=== PATIENT | female | born 1985 | race Caucasian/White ===

== ENCOUNTER 2017-05-05 13:36 | Emergency (ER) | payer MEDICAID ==
[~2017-05-05] VITALS: Ht 167.6 cm; Wt 46.3 kg
[~2017-05-05 13:36] MED LIST: PREN-39 PO; PREN-46 PO
[2017-05-05 13:41] VITALS: Ht 167.6 cm; Wt 46.3 kg
[2017-05-05] MEDS ORDERED: HYDROCODONE/APAP (5/325) TAB PO ONE (15:00)
[2017-05-05] MEDS ORDERED: NAPR-260 PO (15:41)
[2017-05-05] MEDS ORDERED: CYCL-319 PO (15:41)
[2017-05-05] MEDS ORDERED: METOCLOPRAMIDE 10 MG INJ IV ONE (16:00)
[2017-05-05] MEDS ORDERED: DIPHENHYDRAMINE 50 MG INJ IV ONE (16:00)
--- NOTE | 2017-05-05 16:01 | ERD ---
ER Documentation Chief Complaint Chief Complaint c/o difficulty breathing with bilateral upper back pain x3 days HPI This is a 32-year-old female who presents the emergency department today complaining some some upper back pain for the past 3 days. Patient states that she has pain when she moves. States she has pain when she lays on it. Denies any chest pain, cough, shortness of breath however she states that it is worse when she takes a deep breath in. States that at night she feels like her left arm has some numbness and tingling in it. States she has some pain on the left side of her neck. 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 States she took ibuprofen and it improved some of her symptoms. Denies any recent or prolonged foreign travel, use of oral contraceptive pills, cigarette smoke. ROS All systems reviewed and are negative except as per history of present illness. Medications Home Meds Active Scripts Cyclobenzaprine Hcl* (Cyclobenzaprine Hcl*) 10 Mg Tablet, 10 MG PO QHS, #7 TAB Prov:PORTIA SHAH PA-C 05/05/17 Naproxen* (Naprosyn*) 500 Mg Tablet, 500 MG PO BID Y for PAIN AND/OR INFLAMMATION, #30 TAB Prov:PORTIA SHAH PA-C 05/05/17 Reported Medications Vits W-Ca,Fe,Fa(<1MG) ( Vitamins) 1 Tab Tablet, 1 TAB PO DAILY 06/01/13 Vit #108/Iron/Fa ( ONE TABLET) 1 Each Tablet, 1 EACH PO DAILY 06/01/13 Allergies Allergies: Coded Allergies: No Known Allergy (Unverified , 06/01/13) PMhx/Soc Medical and Surgical Hx: pt denies Medical Hx, pt denies Surgical Hx Hx Alcohol Use: No Hx Tobacco Use: No Smoking Status: Never smoker Physical Exam Vitals Vital Signs Date Time Temp Pulse Resp B/P Pulse Ox O2 Delivery O2 Flow Rate FiO2 05/05/17 13:41 98.8 69 20 106/66 100 Physical Exam Const: NAD, talkative, Head: Atraumatic Eyes: Normal Conjunctiva ENT: Normal External Ears, Nose and Mouth. Neck: Full range of motion..~ No meningismus. No midline tenderness. Left side of neck with paraspinal tenderness and inferior trapezius tenderness to palpation Resp: Clear to auscultation bilaterally no absent breath sounds. No wheezing. Cardio: Regular rate and rhythm, no murmurs Abd: Soft, non tender, non distended. Normal bowel sounds Skin: No petechiae or rashes Back: Thoracic spine no midline tenderness. Full active range of motion. Tenderness palpation bilateral paraspinals. Ext: No cyanosis, or edema with full active range of motion. Pulses 2+. Distal neurovascularly intact. Good cap refill. Neur: Awake and alert Psych: Normal Mood and Affect Results 24 hrs Current Medications Medications (Trade) Dose Ordered Sig/Aster Route PRN Reason Start Time Stop Time Status Last Admin Dose Admin Acetaminophen/ Hydrocodone Bitart ([place] (5/325)) 1 tab ONCE ONCE PO 05/05/17 15:00 05/05/17 15:01 DC 05/05/17 15:09 Metoclopramide HCl (Reglan) 10 mg ONCE ONCE IV 05/05/17 16:00 05/05/17 16:01 Cancel Diphenhydramine HCl (Benadryl) 12.5 mg ONCE ONCE IV 05/05/17 16:00 05/05/17 16:01 Cancel Procedures/MDM This is a 32-year-old female who presents to the emergency department today complaining of back pain that goes from her lower trapezius down into her mid thoracic region bilaterally. Patient indicated that it is worse with movement and worse when she lays on it at night. Patient is afebrile and otherwise well- appearing. She is not tachycardic. Her oxygen saturation is 100%. She has had no recent or prolonged foreign travel. She denies any cough or fevers. She does not use oral contraceptive pills or smokes cigarettes I do not feel that she requires advanced imaging at this time. I have low suspicion for pneumonia, PE, abscess, pleural effusion, pneumothorax. She had no specific trauma and I have low suspicion for acute fracture dislocation. Patient did complain of some left arm pain however she also stated that she feels like it goes to sleep at night and she has had some pain in the left side of her neck and this is likely coming from her neck. I have explained this to her. I have low suspicion for acute coronary syndrome. Do not feel she requires an EKG. Patient did indicate that she had taken ibuprofen to help with pain. Patient was very talkative in the exam room and even got up out of her chair to demonstrate where she was having some pain on her back and demonstrated it on me. Given that her pain is reproducible and has pain in her bilateral paraspinals this is most likely musculoskeletal strain versus muscle spasm. I have given the patient Alessandro here in the emergency department. I will give her a prescription for short course of Naprosyn and Flexeril for home. She is instructed to apply ice and heat intermittently. She was instructed to return for any worsening of symptoms, cough or shortness of breath. At this time the patient is stable for discharge and outpatient management. Patient should follow up with their PCP in the next 1-2 days. They may return to the emergency department sooner for any persistent or worsening of symptoms. Patient understood and agreed with the plan. Departure Diagnosis: Primary Impression: Back pain Back pain location: back pain in unspecified location Chronicity: acute Back pain laterality: bilateral Qualified Code: M54.9 - Acute bilateral back pain, unspecified back location Condition: Fair Patient Instructions: Back Pain (Acute Or Chronic) Referrals: [facility] ted se sosa hecho un examen mdico de control que le indica que no est en adalid condicin que requiera tratamiento urgente en el Departamento de Emergencia. Un estudio ms profundo y el tratamiento de vieira condicin pueden esperar sin ningn riesgo hasta que usted sea atendida/o en el consultorio de vieira mdico o adalid cl tessie. Es responsabilidad suya arreglar adalid aydin para el seguimiento del winsome. MANEJO DE CONDICIONES NO URGENTES EN EL FUTURO 1) Si usted tiene un mdico de atencin primaria: Usted debera llamar a vieira mdico de atencin primaria antes de venir al departamento de emergencia. Despus de las horas de consultorio, vieira doctor o vieira asociado/a est disponible por telfono. El mdico o enfermero de bhargav en el servicio telefnico puede asesorarle por pastora medio para atender el problema, o winsome contrario se puede programar adalid aydin. 2) Si usted no tiene un mdico de atencin primaria: Llame al mdico o clnica de referencia que aparece abajo zaire las horas de consultorio para hacer adalid aydin para que le vean. CLINICAS: [facility] [phone] [facility] [phone] [facility] [phone] [place] [phone] [place] [phone] [facility] [phone] [address] Additional Instructions: Llame al doctor MAANA y tre adalid AYDIN PARA DENTRO DE 1-2 PEREIRA.Dgale a la secretaria que nosotros le instruimos hacer esta aydin.Avise o llame si vieira condicin se empeora antes de la aydni. Regresa aqui si peor o no mejor. take Naprosyn or Tylenol or Motrin for pain. Take Flexeril for muscle spasms. Take only at night and do not drive while taking this medication. Apply ice and heat intermittently for pain PORTIA SHAH PA-C May 05, 2017 16:00
== END 2017-05-05 15:55 | disposition home or self-care (01) ==
LOC: FTE 13:36
DX: M54.6 Pain in thoracic spine (principal)
CPT/HCPCS: Z7502; Z7610; 99283

== ENCOUNTER 2018-07-07 18:28 | Outpatient (CLI) | payer MEDICAID ==
[~2018-07-07] VITALS: Ht 165.1 cm; Wt 58.7 kg
[~2018-07-07 18:28] MED LIST changes: -PREN-46 PO
[2018-07-07 19:24] VITALS: Ht 165.1 cm; Wt 58.7 kg
[2018-07-07 19:25] VITALS: BP 98/61; PULSE 92; RESP 18
--- NOTE | 2018-07-08 07:30 | TRIAGE ---
OB Triage Datetime Report Generated by CPN: 07/08/2018 07:30 Datetime: 07/07/2018 23:43 Stage of : OB Triage Labor Evaluation Frequency: x5 Monitor Mode: External Duration (sec)2399: 80-90 Quality: Mild Pattern: Normal: <= 5 Contractions in 10 Minutes Resting Tone [place]: Relaxed Heart Rate FHR Baseline Rate: 135 Monitor Mode: External US Variability: Moderate 6-25 bpm Accelerations: 15X15 Decelerations: None Category: Category I Datetime: 07/07/2018 23:00 Stage of : OB Triage Labor Evaluation Frequency: Irregular Monitor Mode: External Duration (sec)2399: 60-120 Quality: Mild Pattern: Normal: <= 5 Contractions in 10 Minutes Resting Tone [place]: Relaxed Heart Rate FHR Baseline Rate: 140 Monitor Mode: External US Variability: Moderate 6-25 bpm Accelerations: 15X15 Decelerations: None Category: Category I Datetime: 07/07/2018 22:59 Stage of : OB Triage Datetime: 07/07/2018 22:56 Vaginal Exam Dilatation (cms): 1.5 Effacement (%): 60 Station: -2 Exam By: EVANGELIST Antunez Vaginal Bleeding: None Cervix, Consistency: Moderate Cervix, Position: Posterior Datetime: 07/07/2018 22:30 Stage of : OB Triage Datetime: 07/07/2018 21:23 Stage of : OB Triage Labor Evaluation Frequency: x3 Monitor Mode: External Duration (sec)2399: 40-130 Quality: Mild Pattern: Normal: <= 5 Contractions in 10 Minutes Resting Tone [place]: Relaxed Heart Rate FHR Baseline Rate: 130 Monitor Mode: External US Variability: Moderate 6-25 bpm Accelerations: 15X15 Decelerations: None Category: Category I Datetime: 07/07/2018 21:00 Stage of : OB Triage Labor Evaluation Frequency: Irregular Monitor Mode: External Duration (sec)2399: 40-90 Quality: Mild Pattern: Normal: <= 5 Contractions in 10 Minutes Resting Tone [place]: Relaxed Heart Rate FHR Baseline Rate: 135 Monitor Mode: External US FHR Baseline Changes: No Baseline Change Variability: Moderate 6-25 bpm Accelerations: 15X15 Decelerations: None Datetime: 07/07/2018 20:47 Vaginal Exam Dilatation (cms): 1.5 Effacement (%): 60 Station: -2 Exam By: EVANGELIST Antunez Membrane Status: Intact Vaginal Bleeding: None Cervix, Consistency: Moderate Cervix, Position: Posterior Presentation 'A': Cephalic Datetime: 07/07/2018 20:00 Stage of : OB Triage Labor Evaluation Frequency: Irregular Monitor Mode: External Duration (sec)2399: 40-90 Quality: Mild Pattern: Normal: <= 5 Contractions in 10 Minutes Resting Tone [place]: Relaxed Heart Rate FHR Baseline Rate: 135 Monitor Mode: External US Variability: Moderate 6-25 bpm Accelerations: 15X15 Datetime: 07/07/2018 19:41 Stage of : OB Triage Datetime: 07/07/2018 19:01 Stage of : OB Triage Assessment Type: Triage Maternal Assessment Level of Consciousness: Fully Conscious DTR's/Clonus: DTRs 2+; No Clonus Headache: Denies Blurred Vision: No Respiratory Effort: Unlabored; Regular Rhythm; Equal Expansion Breath Sounds, Left: Clear and Equal Breath Sounds, Right: Clear and Equal Nausea/Vomiting: Denies RUQ Epigastric Pain: Denies Facial Edema: None Temperature Route: Axillary Fall Risk Assessment History of Falling: (0) No Secondary Diagnosis: (0) No Ambulatory Aid: (0) Bedrest/Nurse Assist IV Therapy: (0) No Gait: (0) Normal/Bedrest/Immobile Mental Status: (0) Oriented to Own Ability Fall Score: 0 Fall Risk Score Definition: No Risk: No action required Labor Evaluation Frequency: APPLIED Monitor Mode: External Pattern: Normal: <= 5 Contractions in 10 Minutes Resting Tone [place]: Relaxed Heart Rate FHR Baseline Rate: 145 Monitor Mode: External US Variability: Moderate 6-25 bpm Accelerations: 10X10 Decelerations: None Pain Assessment Pain Scale: 7 Pain Presence: Intermittent Pain Type: Cramping; Contraction Pain Location: Abdomen Pain Goal: 3 Pain Relief Measures: Comfort Measures Datetime: 07/07/2018 19:00 Time of Arrival: 07/07/2018 18:22 EGA: 39.6 Arrived By: Ambulatory Arrived From: Home Chief Complaint: C/O UC'S TODAY, DENIES LEAKING, OR UC'S SEEN IN NST FOR LOW PAPPA Movement: Present Contractions: Irregular Rupture of Membranes: Denies Vaginal Bleeding: None Vaginal Discharge: Denies Recent Sexual Intercouse: Denies Abdominal Trauma: Not Applicable Patient Complaints: Contractions; Cramping Initial Plan: MONITOR, VE Datetime: 06/27/2018 14:43 Fall Score: 0 Fall Risk Score Definition: No Risk: No action required Datetime: 06/27/2018 14:41 EGA: 38.3
--- NOTE | 2018-07-08 09:01 | PN ---
Triage Information Date/Time Reason for visit: Abd/pelvic pain Weeks of Gestation 39 weeks and 6 days /Para Diabetes: none Hypertention: none Objective Vital Signs Date Temp Pulse Resp B/P (MAP) Pulse Ox O2 O2 Flow FiO2 Time Delivery Rate 07/07/18 98.3 92 18 98/61 (73) 19:25 Heart Rate: 130's Contractions: 6-10 Minutes Apart Results/Medications Imaging Results There is a single live intrauterine gestation. Cardiac activity is present with 140 beats per minute. There is a vertex presentation. The placenta is anterior. There is no evidence of placental abruption. There is a normal amount of amniotic fluid with an SANDRA = 10.7 cm. Biophysical profile: movement 2/2 tone 2/2. breathing 2/2 SANDRA 2/2 Total 12/28 RPTAT: AA . IMPRESSION: Normal biophysical profile. Disposition: Discharge Assessment/Plan 33-year-old with single intrauterine at 39 weeks and 6 days with a SHERYL of 07/08/2018 complaining of irregular uterine contractions. She states good movement. She denies nausea, vomiting, shortness of breath, chest pain, headache, visual changes, vaginal bleeding or LOF. FHR: No sign of metabolic acidosis- Category I. She has occasional uterine contractions. Vaginal exam 06/21/-3/cephalic. Repeat exam in 2 hours was unchanged. Labor and delivery no room available. She is scheduled for induction of labor 07/11/2018. Symptoms and sign of labor, preeclampsia, kick count discussed with patient, she voiced understanding. All of her questions answered. Patient was discharged home in stable condition with the appropriate discharge instructions provided. I I strongly recommend come back to triage if experiencing given regular uterine contractions or with any concern. KATTY ALVA Jul 08, 2018 09:01
== END 2018-07-07 23:55 | disposition home or self-care (01) ==
LOC: OBT 18:28 → L-D 18:29 → OBT 23:55
PROVIDERS: ATTEND Obstetrics & Gynecology
DX: O26.893 Other specified pregnancy related conditions, third trimester (principal); Z3A.39 39 weeks gestation of pregnancy; R10.2 Pelvic and perineal pain
CPT/HCPCS: 76818; Z7500; G0463

== ENCOUNTER 2018-07-08 05:40 | Inpatient (IN) | payer MEDICAID ==
[~2018-07-08] VITALS: Ht 165.1 cm; Wt 59.4 kg
[2018-07-11] MEDS ORDERED: MINERAL OIL LIGHT 10 ML VIAL TOP ONE (11:30)
[2018-07-11] MEDS ORDERED: BUTORPHANOL 2 MG INJ IV PRN (11:30)
[2018-07-11] MEDS ORDERED: MISOPROSTOL 50 MCG CAPSULE VAG ONE ×2 (11:30→21:30)
[2018-07-11] MEDS ORDERED: LIDOCAINE 1% (MPF) 30 ML INJ INJ PRN (11:30)
[2018-07-11] MEDS ORDERED: CARBOPROST 250 MCG INJ IM PRN (11:30)
[2018-07-11] MEDS ORDERED: OXYTOCIN 30 UNITS/LR 500 ML IV PRN (11:30)
[2018-07-11] MEDS ORDERED: OXYTOCIN 30 UNITS/LR 500 ML IV SCH ×2 (11:30)
[2018-07-11] MEDS ORDERED: IBUPROFEN 600 MG TAB PO PRN (11:30)
[2018-07-11 11:32] VITALS: Ht 165.1 cm; Wt 59.4 kg
[2018-07-11] MEDS: LACTATED RINGER'S 1,000 ML IV SCH ×2 (12:07→19:10)
[2018-07-11] MEDS ORDERED: MISOPROSTOL 50 MCG CAPSULE PO ONE (14:00)
--- NOTE | 2018-07-12 00:20 | PREAC ---
Date/Time of Note Date/Time of Note DATE: 07/12/18 TIME: 00:19 Anesthesia Eval and Record Evaluation Time Pre-Procedure Interview DATE: 07/12/18 TIME: 00:19 Age 33 Sex female NPO: Other (na) Preoperative diagnosis labor pain Planned procedure epidural Past Medical History Past Medical History: None Surgery & Anesthesia Issues No known issue Meds Anticoagulation: No Beta Julio C within 24 hr: No Reason Beta Julio C not given: Pt. not on B-Julio C Reported Medications Vits W-Ca,Fe,Fa(<1MG) ( Vitamins) 1 Tab Tablet, 1 TAB PO DAILY 06/01/13 Current Medications Lactated Ringer's 1,000 ml @ 125 mls/hr Q8H IV Last administered on 07/11/18at 19:10; Admin Dose 125 MLS/HR; Start 07/11/18 at 11:21 Butorphanol Tartrate (Stadol) 2 mg Q2H PRN IV .PAIN; Start 07/11/18 at 11:30 Lidocaine (Xylocaine 1% (Mpf)) 30 ml ONCE PRN INJ .EPISIOTOMY; Start 07/11/18 at 11:30 Oxytocin/Lactated Ringer's 500 ml @ 500 mls/hr ONCE POST IV ; Start 07/11/18 at 11:30 Oxytocin/Lactated Ringer's 500 ml @ 125 mls/hr POST IV ; Start 07/11/18 at 11:30 Ibuprofen (Motrin) 600 mg ONCE PRN PO .PAIN 1-5; Start 07/11/18 at 11:30 Oxytocin/Lactated Ringer's 500 ml @ 0 mls/hr ONCE PRN IV .VAGINAL BLEEDING; Start 07/11/18 at 11:30 Methylergonovine Maleate (Methergine) 0.2 mg ONCE PRN IM .VAGINAL BLEEDING; Start 07/11/18 at 11:30 Carboprost Tromethamine (Hemabate) 250 mcg ONCE PRN IM .VAGINAL BLEEDING; Start 07/11/18 at 11:30 Misoprostol (Cytotec) 1,000 mcg ONCE PRN WV .VAGINAL BLEEDING; Start 07/11/18 at 11:30 Oxytocin/Lactated Ringer's 500 ml @ 0 mls/hr FOR INDUCTION IV ; Start 07/11/18 at 11:30 Meds reviewed: Yes Allergies Coded Allergies: No Known Allergy (Unverified , 06/01/13) Allergies Reviewed: Yes Labs/Studies Labs Reviewed: Reviewed by anesthesiologist Result Diagram: 07/11/18 1200 Laboratory Tests 07/11/18 12:00 Blood Bank Test 07/11/18 11:21 Antibody Screen NEGATIVE Blood Type O POSITIVE Rh Immune Globulin Candidate NO test: N/A Pre-procedure Exam Airway: Adequate mouth opening, Adequate thyromental dist Mallampati: Mallampati II Teeth: Normal Lung: Normal Heart: Normal ASA Physical Status ASA physical status: 2 Emergency: None Pre-operative Attestations Prior to commencing anesthesia and surgery, the patient was re-evaluated, there was verification of: *The patient's identity *The results of appropriate recent lab work and preoperative vital signs *The above evaluation not changing prior to induction *Anesthetic plan, risk benefits, alternative and complications discussed with patient/family; questions answered; patient/family understands, accepts and wishes to proceed. THOMAS ZELAYA DO Jul 12, 2018 00:20
[2018-07-12] MEDS ORDERED: FENTAnyl 2MCG/ML-ROPIV 0.2% 100 ML BAG EPI SCH (00:30)
[2018-07-12] MEDS ORDERED: NALOXONE (0.4 MG/ML) INJ IV PRN (00:30)
[2018-07-12] MEDS: LACTATED RINGER'S 1,000 ML IV SCH ×3 (00:41→05:58)
--- NOTE | 2018-07-12 06:08 | HP ---
Date/Time of Note Date/Time of Note DATE: 07/12/18 TIME: 06:03 OB - History Hx of Present Free Text/Dictation 33-year-old 001 with single intrauterine at 40 weeks and 3 days with a SHERYL of 07/08/2018 was scheduled for induction of labor, however currently she is complaining of uterine contractions. She states good movement. She denies nausea, vomiting, shortness of breath, chest pain, headache, visual changes, vaginal bleeding or LOF. Chief Complaint: Uterine contractions Estimated Due Date: Jul 08, 2018 : 2 Para: 1 Spontaneous : 0 Therapeutic : 0 Care: Good Care Ultrasounds: Normal mid trimester US Obstetrical Complications: None Medical Complications: None Past Family/Social History * Past Medical, Surgical, Family and Obstetric Histories reviewed from chart. Blood Type: O+ Rubella: immune RPR/VDRL: Negative GBS Status: Negative HBsAG: Negative OB Admission Exam Vital Signs Vital Signs Blood pressure 126/72, pulse rate 72/minutes, respiratory rate 16/minutes, temperature 98.6 Physical Exam HEENT: WNL Heart: Rhythm Normal Lungs: Clear Abdomen: WNL Extremities: Normal Cervical Dilatation: 2cm Effacement: 75% Station: -2 Membranes: Intact Heart Rate: 130's Accelerations: Accelerations Present Decelerations: No Decelerations Varibility: Moderate Contractions on Admission: < 5 Minutes Apart Intensity: Mild Last 72 hours Lab Results CBC & BMP 07/11/18 12:00 OB Assessment/Plan Other plan: 33-year-old 2 para 1001 at 40 weeks and 3 days - FHR: No sign of metabolic acidosis- Category I - Continuous EFM, toco - CBC, blood type and screen - Analgesia options with R/B/A discussed in detail with patient - Epidural per patient request - Please see the orders - O+/Rubella: Immune - GBS: negative Admission, procedures, expectations, risks and possible complications have been discussed in detail with the patient. Risk of vaginal delivery including but not limited to bleeding, infection, cervical laceration, placental retention, injury to fetus, blood transfusion, blood transfusion related infection, risk of anesthesia, adhesion, cervical laceration, episiotomy/laceration, possible delivery with risk of bleeding, infection, injury to other organs (bowel, bladder, ureter, vessels, nerves), injury to fetus, blood transfusion, blood transfusion related infection, risk of anesthesia, scar and hernia formation, needs for future , removal of uterus or any other indicated surgery discussed with the patient. She expressed understanding and repeats the risks. All of her questions were answered. She signed the informed consent. PHYSICIAN'S VERIFICATION OF INFORMED CONSENT The patient was counseled regarding the procedure, its indications, risks, potential complications and alternatives and any questions were answered. Consent was obtained. PLANNED PROCEDURE/TREATMENT: Vaginal delivery, episiotomy, repair of laceration possible delivery KATTY ALVA Jul 12, 2018 06:07
[2018-07-12] MEDS: MISOPROSTOL 200 MCG TAB PR PRN ×2 (06:28→09:49)
[2018-07-12] MEDS: METHYLERGONOVINE 0.2 MG INJ IM PRN ×2 (06:28→06:48)
[2018-07-12] MEDS: OXYTOCIN 30 UNITS/LR 500 ML IV SCH ×2 (06:39→07:40)
--- NOTE | 2018-07-12 07:25 | DELSUM ---
Delivery Summary A-C Datetime Report Generated by CPN: 07/12/2018 07:24 DELIVERY PERSONNEL Switchboard Troubleshooter: Bateman, Amelia MATERNAL INFORMATION Delivery Anesthesia: Epidural Medications in Delivery: 30 UNIT PITOCIN Delivery QBL (ml): 450 Placenta Cultured: No Maternal Complications: None LABOR SUMMARY EDC: 07/08/2018 00:00 EDC: 07/08/2018 00:00 EDC: 06/12/2018 00:00 No. Babies in Womb: 1 Attempted: No Labor Anesthesia: Epidural LABOR INFORMATION Reason for Induction: Postterm Onset of Labor: 07/12/2018 22:00 Complete Dilatation: 07/12/2018 05:59 Cervical Ripening Agents: Cytotec @ Oxytocin: Induction Group B Beta Strep: Negative Antibiotics # of Doses: 0 Steroids Given: None Reason Steroids Not Administered: Not Applicable MEMBRANES Membranes Rupture Method: Spontaneous Rupture of Membranes: 07/12/2018 03:10 Length of Rupture (hr): 3.15 Amniotic Fluid Color: Clear Amniotic Fluid Amount: Small STAGES OF LABOR Stage 1 hr: -16 Stage 1 min: -1 Stage 2 hr: 0 Stage 2 min: 20 Stage 3 hr: 0 Stage 3 min: 3 Total Time in Labor hr: -15 Total Time in Labor min: -38 VAGINAL DELIVERY Episiotomy: None Laceration Extension: First Degree Laceration Type: Perineal Laceration Repair: Yes Initial Vag Sponge Count: 10 Final Vag Sponge Count: 40 Initial Vag Sharps Count: 1 Final Vag Sharps Count: 2 Sponge Count Correct: Yes; Vaginal Sweep Performed Sharps Count Correct: Yes BABY A INFORMATION Delivery Date/Time: 07/12/2018 06:19 Method of Delivery: Vaginal Method of Delivery: Vaginal Born in Route : No : N/A Forceps: N/A Vacuum Extraction: N/A Shoulder Dystocia : N/A SHOULDER DYSTOCIA BABY A Infant Delivery Date/Time: 07/12/2018 06:19 PRESENTATION/POSITION BABY A Presentation: Cephalic Cephalic Presentation: Vertex Vertex Position: Left Occipital Anterior Breech Presentation: N/A PLACENTA INFORMATION BABY A Placenta Delivery Time : 07/12/2018 06:22 Placenta Method of Delivery: Spontaneous Placenta Status: Delivered SCORES BABY A Heart Rate 1 min: >100 bpm Resp Effort 1 min: Good Cry Reflex Irritability 1 min: Cough/Sneeze/Pulls Away Muscle Tone 1 min: Active Motion Color 1 min: Body [place], Extremit Blue Resuscitation Effort 1 min: Tactile Stimulation SCORE 1 MIN: 9 Heart Rate 5 min: >100 bpm Resp Effort 5 min: Good Cry Reflex Irritability 5 min: Cough/Sneeze/Pulls Away Muscle Tone 5 min: Active Motion Color 5 min: Body [place], Extremit Blue Resuscitation Effort 5 min: Tactile Stimulation SCORE 5 MIN: 9 INFANT INFORMATION BABY A Gestational Age at Delivery: 40.4 Gestational Status: Full Term- 39- 40.6 Weeks Infant Outcome : Liveborn Infant Condition : Stable Sex: Female Infant Sex: Female IDENTIFICATION/MEDS BABY A ID Band Number: [id number] ID Band Location: Right Leg; Left Arm Sensor Applied: Yes Sensor Number: [id number] Sensor Location : Right Leg; Cord Clamp Vitamin K Given : Not Given Erythromycin Given: Not Given WEIGHT/LENGTH BABY A Birthweight (gm): 3340 Weight (lb): 7 Infant Weight (oz): 6 Infant Length (in): 19.00 Infant Length (cm): 48.26 CORD INFORMATION BABY A No. Cord Vessels: 3 Nuchal Cord : N/A Cord Blood Taken: Yes Suction: Mouth; Nose ASSESSMENT BABY A Infant Complications: None Physical Findings at Delivery: Within Normal Limits Respirations: Appears Normal [place]/ALS Called : No Care By: Darin NGUYEN Transferred To: Remains with Mother
[2018-07-12] MEDS ORDERED: ONDANSETRON 4 MG INJ ONE (08:36)
[2018-07-12] MEDS ORDERED: ONDANSETRON 4 MG INJ IV STA (08:37)
--- NOTE | 2018-07-12 09:12 | LDN ---
Date/Time of Note Date/Time of Note DATE: 07/12/18 TIME: 08:57 Delivery Summary 33-year-old 001 with single intrauterine at 40 weeks and 4 days delivered a viable female over first-degree vaginal laceration. Nose and mouth suctioned. Rest of body delivered. Cord clamped and cut after stopping pulsation. Baby given to the nurse. Placenta delivered spontaneously and intact with three-vessel cord. Laceration repaired with 3-0 chromic SH needle. The patient had uterine atonia, Pitocin, Methergine x1 and 400 mcg Cytotec p.o. given. As the patient continued to have bleeding cervix checked with ring forceps, no cervical laceration seen, another dose of Methergine 600 mcg Methergine rectally given. Time of delivery: 06:19 Weight the 7 pounds 6 ounces / 3340 g Height 19 inches pgar 9 at 1 minutes and 9 at 5 minutes EBL 450 mL Weeks of Gestation 40 weeks and 4 days Placenta Delivered: Spontaneously Anesthesia type: Epidural Estimated blood loss: 450 Sponge & Needle done & correct: Yes All needle counts correct: Yes Infant Delivery Information Sex Infant Sex: female Apgars 1 Minute: 9 5 Minute: 9 10 Minute: 10 Suctioning Nose & mouth suctioned at lisa: Yes Umbilical Cord Umbilical cord with: 3 Vessels Cord presentations: no nuchal cord Cord Blood was obtained: Yes Mother & Baby Disposition Disposition Mom & Baby to Maternity; Good: Yes KATTY ALVA Jul 12, 2018 09:10
--- NOTE | 2018-07-12 09:13 | QN ---
Documentation Comment The nurse called to evaluate patient due to vaginal bleeding bleeding. The uterus was boggy. Vaginal exam performed, large amount of clot was removed from the vagina. Cytotec 800 mcg rectally given. There was no further bleeding. Wall catheter inserted. Patient tolerated the procedure well. She is currently comfortable and has no further vaginal bleeding. Check hemoglobin and hematocrit in 6 hours EBL: 550 mL KATTY ALVA Jul 12, 2018 09:13
[2018-07-12] MEDS: LACTATED RINGER'S 1,000 ML IV* SCH ×2 (10:06→15:19)
[2018-07-12] MEDS: DEXTROSE 5%-LR 1,000 ML IV SCH ×2 (10:06→18:06)
[2018-07-12] MEDS ORDERED: DIPHENHYDRAMINE 50 MG INJ IV PRN (10:30)
[2018-07-12] MEDS ORDERED: OXYCODONE/ASPIRIN (4.88/325) TAB PO PRN (10:30)
[2018-07-12] MEDS ORDERED: CARBOPROST 250 MCG INJ IM PRN (10:30)
[2018-07-12] MEDS ORDERED: ACETAMINOPHEN 325 MG TAB PO PRN (10:30)
[2018-07-12] MEDS ORDERED: MISOPROSTOL 200 MCG TAB PR PRN (10:30)
[2018-07-12] MEDS ORDERED: METHYLERGONOVINE 0.2 MG INJ IM PRN (10:30)
[2018-07-12] MEDS ORDERED: DIBUCAINE 1% 30 GM OINT TOP PRN (10:30)
[2018-07-12] MEDS ORDERED: ONDANSETRON 4 MG INJ IV PRN (10:30)
[2018-07-12] MEDS ORDERED: LANOLIN HPA 1 PKT TOP PRN (10:30)
[2018-07-12] MEDS ORDERED: ZOLPIDEM 5 MG TAB PO PRN (10:30)
[2018-07-12] MEDS ORDERED: BENZOCAINE 20% 56 ML SPRAY TOP PRN (10:30)
[2018-07-12] MEDS ORDERED: MAGNESIUM HYDROXIDE 30ML CUP PO PRN (10:30)
[2018-07-12] MEDS ORDERED: SENNA/DOCUSATE NA (8.6MG/50MG) TAB PO PRN (10:30)
[2018-07-12] MEDS ORDERED: OXYTOCIN 30 UNITS/LR 500 ML IV PRN (10:30)
[2018-07-12] MEDS: IBUPROFEN 600 MG TAB PO SCH ×2 (12:00→18:27)
[2018-07-12 13:00] VITALS: BP 108/65; PULSE 103; RESP 18
[2018-07-12 14:00] VITALS: BP 110/66; RESP 18
[2018-07-12 15:00] VITALS: BP 118/68; RESP 20
[2018-07-12 15:10] VITALS: BP 100/57; PULSE 107; RESP 20
[2018-07-12 16:10] VITALS: BP 94/58; PULSE 101; RESP 18
[2018-07-12] MEDS: WITCH HAZEL/GLYCERIN PAD PR PRN (18:27)
[2018-07-12 20:15] VITALS: BP 93/53; PULSE 103; RESP 18
[2018-07-12] MEDS: PIPER-TAZO 3.375 GM IV (PMX) 100 ML IVPB SCH (20:26)
[2018-07-12] MEDS ORDERED: PIPER-TAZO 3.375 GM IV (PMX) 100 ML IVPB SCH (22:00)
[2018-07-13] VITALS: BP 95/52; PULSE 85; RESP 20
[2018-07-13] MEDS: IBUPROFEN 600 MG TAB PO SCH ×5 (00:11→23:39)
[2018-07-13] MEDS ORDERED: PIPER-TAZO 3.375 GM IV (PMX) 100 ML IVPB SCH (02:00)
[2018-07-13] MEDS: DEXTROSE 5%-LR 1,000 ML IV SCH (02:06)
[2018-07-13] MEDS: LACTATED RINGER'S 1,000 ML IV* SCH ×2 (02:06→10:06)
[2018-07-13] MEDS: LACTATED RINGER'S 1,000 ML IV SCH (03:21)
[2018-07-13] MEDS: PIPER-TAZO 3.375 GM IV (PMX) 100 ML IVPB SCH ×2 (03:58→12:16)
[2018-07-13 04:00] VITALS: BP 93/59; PULSE 81; RESP 18
[2018-07-13 07:50] VITALS: BP 98/55; PULSE 86; RESP 18
[2018-07-13] MEDS ORDERED: INFLUENZA VIRUS VACCINE 0.5 ML (DISPENSING) IM* ONE (09:00)
--- NOTE | 2018-07-13 11:56 | PN ---
Date/Time of Note Date/Time of Note DATE: 07/13/18 TIME: 11:53 OB Subjective Subjective Subjective Breast-feeding and bottlefeeding. Urinated. Denies any pain in legs. Denies any dizziness, lightheadedness, any other complaint. Looking in the amount of menses. Ambulating. Denies any shortness of breath or chest pain. Denies any fatigue OB Objective Objective Objective General appearance: Alert and oriented x4 does not appear to be in any acute distress Breast: No evidence of mastitis or fissure engorgement Abdomen: Soft, fundus firm and nontender palpable below the umbilicus extremities: No calf tenderness, no click no edema no cord palpable VS - Last 72 Hours, by Label Date Temp Pulse Resp B/P (MAP) Pulse Ox O2 O2 Flow FiO2 Time Delivery Rate 07/13/18 98.1 86 18 98/55 (69) Room Air 07:50 07/13/18 97.9 81 18 93/59 (70) 97 Room Air 04:00 07/13/18 98.0 85 20 95/52 (66) 97 Room Air 00:00 07/12/18 98.2 103 18 93/53 (66) 98 Room Air 20:15 07/12/18 101 18 94/58 (70) Room Air 16:10 07/12/18 99.9 107 20 100/57 98 Room Air 15:10 (71) 07/12/18 98.2 20 118/68 Room Air 15:00 (85) 07/12/18 98.1 18 110/66 Room Air 14:00 (81) 07/12/18 98.2 103 18 108/65 Room Air 13:00 (79) Laboratory Tests Test 07/12/18 13:54 07/13/18 06:25 White Blood Count 19.5 #H Red Blood Count 2.27 #L Hemoglobin 7.0 #L Hematocrit 20.2 #L Mean Corpuscular Volume 89.0 Mean Corpuscular Hemoglobin 30.8 Mean Corpuscular Hemoglobin Concent 34.7 Red Cell Distribution Width 13.3 Platelet Count 193 Mean Platelet Volume 10.1 Immature Granulocytes % 0.700 H Neutrophils % 89.5 H Lymphocytes % 5.2 L Monocytes % 4.4 Eosinophils % 0.0 Basophils % 0.2 Nucleated Red Blood Cells % 0.0 Immature Granulocytes # 0.130 H Neutrophils # 17.5 H Lymphocytes # 1.0 Monocytes # 0.9 Eosinophils # 0.0 Basophils # 0.0 Nucleated Red Blood Cells # 0.0 Lab Scanned Report REFERENCE LAB OB Assessment/Plan Other Assessment: PPD #1 s/p Anemia, hemoglobin 7, asymptomatic, Doing well routine post care To take iron twice a day and stool softener Anticipate DC home tomorrow BIMAL STACY MD Jul 13, 2018 11:56
[2018-07-13] MEDS: POLYSACCHARIDE IRON COMPLEX CAP PO SCH ×2 (14:24→21:37)
[2018-07-13 16:00] VITALS: BP 97/52; PULSE 96; RESP 20
[2018-07-13 20:15] VITALS: BP 97/60; PULSE 103; RESP 18
[2018-07-14 04:01] VITALS: BP 91/51; PULSE 91; RESP 20
[2018-07-14] MEDS: IBUPROFEN 600 MG TAB PO SCH ×4 (05:55→23:37)
[2018-07-14 07:50] VITALS: BP 93/56; PULSE 88; RESP 18
--- NOTE | 2018-07-14 08:06 | DS ---
Date/Time of Note Date/Time of Note DATE: 07/14/18 TIME: 08:05 Obstetrical Discharge Record Final Diagnosis Final Diagnosis: Term delivered Vaginal Delivery Obstetrical Delivery: Spontaneous, Laceration, Repaired Complications Induction: Yes Rupture of Membranes: No Condition on Discharge Physical Assessment Last Vitals: vss afebrile Voiding: Yes Bowel Movement: Yes Breast: Soft, non-tender Fundus: Firm Abdomen and Incision: n/a Episiotomy: n/a Calf Tenderness: No Patient Condition: Stable ZOEY DE LEON MD Jul 14, 2018 08:06
--- NOTE | 2018-07-14 08:15 | PD.PPDC ---
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
[2018-07-14] MEDS ORDERED: DIPHTH/TET/ACEL PERTUSS (ADULT) 0.5 ML VIAL IM* ONE (09:00)
[2018-07-14] MEDS ORDERED: MEASLES,MUMPS,RUBELLA VACCINE INJ SC* ONE (09:00)
[2018-07-14] MEDS: POLYSACCHARIDE IRON COMPLEX CAP PO SCH ×2 (09:23→21:42)
[2018-07-14 16:30] VITALS: BP 99/58; PULSE 94; RESP 18
[2018-07-14 19:30] VITALS: BP 110/66; PULSE 111; RESP 19
[2018-07-14 19:45] VITALS: BP 110/66; PULSE 111; RESP 19
[2018-07-15 00:25] VITALS: BP 116/74; PULSE 107; RESP 19
[2018-07-15 03:30] VITALS: BP 115/74; PULSE 84; RESP 18
--- NOTE | 2018-07-15 03:58 | NSTRPT ---
NST Information Datetime Report Generated by CPN: 07/15/2018 03:58 Datetime: 07/07/2018 14:25 NST Information EGA: 39.6 Test Number: 7 Time on Monitor: 07/07/2018 14:46 Time off Monitor: 07/07/2018 15:50 NST Duration (Min): 64 Reason for NST: Low JAMES Test and Monitor Explained: Monitor Explained; Test Explained; Verbalized Understanding Pulse: 80 Resp: 18 SBP: 103 DBP: 64 Test Evaluation NST Interventions: Reposition Patient; Other NST Interventions Other: extended monitoring Patient States Movement: Present Contraction Frequency: 6-9/60-90/mod/pain level 7 FHR Baseline : 140 Variability: Moderate 6-25bpm Accelerations: 15X15 Decelerations: None FHR Category: Category I NST Results: Reactive Provider Notified: Dr Francisco baeza/Dr Villegas Comments: to us-jeremy 12.2 cm cephalic 1447 pt reports pain level 7/10 with [facility]. Preliminary US report _ prenatals faxed to triage _ repo rt to G Cubil RN Electronically Signed By E-Signature: with User ID: [id number] Datetime: 07/04/2018 14:13 NST Information EGA: 39.3 NST Duration (Min): 20 Datetime: 06/30/2018 13:57 NST Information EGA: 38.6 NST Duration (Min): 22 Datetime: 06/27/2018 14:32 NST Information EGA: 37.6 Datetime: 06/23/2018 14:11 NST Information EGA: 37.6 NST Duration (Min): 26 Datetime: 06/19/2018 14:15 NST Information EGA: 37.2 NST Duration (Min): 23 Datetime: 06/15/2018 13:45 NST Information EGA: 36.5 NST Duration (Min): 58 Datetime: 06/12/2018 14:12 NST Information EGA: 36.2 Datetime: 06/12/2018 13:51 NST Duration (Min): 25
[2018-07-15 04:45] VITALS: BP 112/55; PULSE 79; RESP 18
[2018-07-15] MEDS: IBUPROFEN 600 MG TAB PO SCH ×2 (05:35→12:00)
[2018-07-15 08:27] VITALS: BP 115/72; PULSE 80; RESP 18
[2018-07-15] MEDS: POLYSACCHARIDE IRON COMPLEX CAP PO SCH (08:33)
[2018-07-15] MEDS: WITCH HAZEL/GLYCERIN PAD PR PRN (08:44)
[2018-07-15] MEDS ORDERED: CYANOCOBALAMIN 1000 MCG INJ IM ONE (10:30)
--- NOTE | 2018-07-15 11:48 | PN ---
Date/Time of Note Date/Time of Note DATE: 07/15/18 TIME: 11:45 OB Subjective Subjective Subjective Late entry note. Patient seen at 2000 on 07/14/2018 PPD# 2 Patient is doing well. She denies nausea, vomiting, shortness of breath, chest pain, headache. She has been ambulating without difficulty, tolerating regular diet. Pain is well controlled on current medications OB Objective Objective Objective VS - Last 72 Hours, by Label Date Temp Pulse Resp B/P (MAP) Pulse Ox O2 O2 Flow FiO2 Time Delivery Rate 07/15/18 98.0 80 18 115/72 Room Air 08:27 (86) 07/15/18 98.9 79 18 112/55 Room Air 04:45 (74) 07/15/18 98.8 84 18 115/74 Room Air 03:30 (88) 07/15/18 98.5 107 19 116/74 Room Air 00:25 (88) 07/14/18 98.1 111 19 110/66 Room Air 19:45 (81) 07/14/18 98.1 111 19 110/66 Room Air 19:30 (81) 07/14/18 98.4 94 18 99/58 (72) Room Air 16:30 07/14/18 97.7 88 18 93/56 (68) Room Air 07:50 07/14/18 98.3 91 20 91/51 (64) Room Air 04:01 07/13/18 97.9 103 18 97/60 (72) Room Air 20:15 07/13/18 98.3 96 20 97/52 (67) Room Air 16:00 07/13/18 98.1 86 18 98/55 (69) Room Air 07:50 07/13/18 97.9 81 18 93/59 (70) 97 Room Air 04:00 07/13/18 98.0 85 20 95/52 (66) 97 Room Air 00:00 07/12/18 98.2 103 18 93/53 (66) 98 Room Air 20:15 07/12/18 101 18 94/58 (70) Room Air 16:10 07/12/18 99.9 107 20 100/57 98 Room Air 15:10 (71) 07/12/18 98.2 20 118/68 Room Air 15:00 (85) 07/12/18 98.1 18 110/66 Room Air 14:00 (81) 07/12/18 98.2 103 18 108/65 Room Air 13:00 (79) General: AAO X 3, comfortable, NAD, appropriate mood and affect. ABD: +BS. Soft, non-tender. Uterus 2 cm below umbilicus Flank: No CVA tenderness (B/L) LE: Mild edema. No clubbing, cyanosis, thigh or calf tenderness (B/L). Homans 'sign is negative OB Assessment/Plan Other plan: 33-year-old s/p normal vaginal delivery at 40 weeks and 4 days with hemorrhage and secondary anemia. PPD#2 - AF, VSS - Baby is doing well, at bed side. She is bonding well - Contraception methods with R/B/A/FR discussed - Continue care - Discharge home tomorrow - Rx and instruction given - Follow up in 2 and 6 weeks at clinic 2) hemorrhage and secondary anemia-hemoglobin 5.7: 2 unit packed RBC ordered. Check H&H tomorrow KATTY ALVA Jul 15, 2018 11:48
--- NOTE | 2018-07-15 11:51 | DS ---
Date/Time of Note Date/Time of Note DATE: 07/15/18 TIME: 11:48 Obstetrical Discharge Record Final Diagnosis Final Diagnosis: Term delivered Other Final Diagnosis Final diagnosis: 1. Single intrauterine at 40 weeks and 4 days 2. hemorrhage 3. Secondary anemia 33-year-old s/p normal vaginal delivery at 40 weeks and 4 days with hemorrhage and secondary anemia. PPD#3 - AF, VSS - Baby is doing well, at bed side. She is bonding well - Contraception methods with R/B/A/FR discussed - Continue care - Discharge home - Rx and instruction given - Follow up in 2 and 6 weeks at clinic 2) hemorrhage and secondary anemia-hemoglobin 5.7: She received 2 units packed RBC. Repeat hemoglobin is 8. She has no symptom. Recommend ferrous sulfate 325 mg twice daily with continue vitamin for 3 months and then daily for another 2 months 2 unit packed RBC ordered. Check H&H tomorrow Complications Induction: Yes Rupture of Membranes: No Condition on Discharge Physical Assessment Voiding: Yes Bowel Movement: Yes Breast: Soft, non-tender Fundus: Firm Calf Tenderness: No Patient Condition: Stable KATTY ALVA Jul 15, 2018 11:51
== END 2018-07-15 13:40 | disposition home or self-care (01) | DRG 806 ==
LOC: EDSTATUS 11:15 → L-D 07-11 10:58 → OBT 07-11 10:58 → L-D 07-11 11:16 → PP1 07-12 15:12
PROVIDERS: ADMIT Obstetrics & Gynecology; ATTEND Obstetrics & Gynecology
PROC: 4A1HXCZ Monitoring of Products of Conception, Cardiac Rate, External Approach (ICD-10-PCS; 2018-07-11)
PROC: 10E0XZZ Delivery of Products of Conception, External Approach (ICD-10-PCS; principal; 2018-07-12)
PROC: 0HQ9XZZ Repair Perineum Skin, External Approach (ICD-10-PCS; 2018-07-12)
PROC: 30233N1 Transfusion of Nonautologous Red Blood Cells into Peripheral Vein, Percutaneous Approach (ICD-10-PCS; 2018-07-14)
DX: O48.0 Post-term pregnancy (principal); O72.1 Other immediate postpartum hemorrhage; Z37.0 Single live birth; D62 Acute posthemorrhagic anemia; Z3A.40 40 weeks gestation of pregnancy; O90.81 Anemia of the puerperium; O70.0 First degree perineal laceration during delivery
CPT/HCPCS: 36430; 62319; 76815; 85014; 85018; 85025; 85610; 85730; 86592; 86850; 86900; 86901; 86920; 90686; J2210; J2405; J2543; J2590; J3010; J3420; J7120; J7121; P9016

== ENCOUNTER 2018-12-05 10:35 | Emergency (ER) | payer MEDICAID ==
[~2018-12-05] VITALS: Ht 160 cm; Wt 46.9 kg
[2018-12-05 10:38] VITALS: BP 117/59; PULSE 80; RESP 18; Ht 160 cm; Wt 46.9 kg
[2018-12-05] MEDS ORDERED: CEPH-443 PO (11:33)
[2018-12-05] MEDS ORDERED: SULF1TAB31 PO (11:33)
--- NOTE | 2018-12-05 13:26 | ERD ---
ER Documentation Chief Complaint Chief Complaint pain in vaginal area HPI 33-year-old female presenting with pain to her vaginal region. 4 months ago patient had a vaginal delivery. She denies any bleeding but she does have pain along the rectal wall of the vagina. Patient states she has pain after intercourse. Has not followed up with her [employer]. Denies other complications during delivery. Denies other medical problems. NKDA. Surgical history: Cholecystectomy and appendectomy. Social history denies ROS All systems reviewed and are negative except as per history of present illness. Medications Home Meds Active Scripts Sulfamethoxazole/Trimethoprim* (Bactrim Ds* Tablet) 1 Each Tablet, 1 TAB PO BID, #14 TAB Prov:JHON KIM PA-C 12/05/18 Cephalexin* (Keflex*) 500 Mg Capsule, 500 MG PO QID for 7 Days, CAP Prov:JHON KIM PA-C 12/05/18 Reported Medications Vits W-Ca,Fe,Fa(<1MG) ( Vitamins) 1 Tab Tablet, 1 TAB PO DAILY 06/01/13 Allergies Allergies: Coded Allergies: No Known Allergy (Unverified , 06/01/13) PMhx/Soc Medical and Surgical Hx: pt denies Medical Hx History of Surgery: Yes (appendectomy,elle) Hx Alcohol Use: Yes (1beer per day) Hx Substance Use: No Hx Tobacco Use: No Smoking Status: Never smoker FmHx Family History: No diabetes, No coronary disease, No other Physical Exam Vitals Vital Signs Date Temp Pulse Resp B/P (MAP) Pulse Ox O2 O2 Flow FiO2 Time Delivery Rate 12/05/18 98.2 80 18 117/59 100 10:38 (78) Physical Exam GENERAL: The patient is well-appearing, well-nourished, in no acute distress CHEST: Clear to auscultation bilaterally. There are no rales, wheezes or rhonchi. HEART: Regular rate and rhythm. No murmurs, clicks, rubs or gallops. ABDOMEN:Soft, nontender and nondistended. Good bowel sounds. No rebound or guarding. No gross peritonitis. No gross organomegaly or masses. SKIN: Erythema and mild inflammation noted to the perineum. There is no fluctuance but tender to palpation. No open lesions or wounds. Results 24 hrs Laboratory Tests Test 12/05/18 11:22 12/05/18 11:23 POC Beta HCG, Qualitative NEGATIVE Bedside Urine pH (LAB) 6.5 Bedside Urine Protein (LAB) Negative Bedside Urine Glucose (UA) Negative Bedside Urine Ketones (LAB) Negative Bedside Urine Blood Negative Bedside Urine Nitrite (LAB) Negative Bedside Urine Leukocyte Esterase (L Negative Procedures/MDM MDM: 33-year-old female presenting with pain to the perineum. Patient's exam was concerning for cellulitic changes however there is no fluctuance and did not require incision and drainage. Patient's vitals are stable and I have low suspicion for deep tracking infection. Patient will be placed on oral antibiotics and recommended to apply warm compresses. I recommended for patient to return in 2 days for check to either the emergency room or her [employer]. Patient is told symptoms change or worsen to return sooner. All questions answered at discharge Departure Diagnosis: Primary Impression: Disorder of female genital organ Condition: Stable Patient Instructions: After a Vaginal Referrals: [facility] [employer] [place] [id number] [facility] [address] [place], [place] [phone] OFFICE FAX , [facility] [address] [place], [place] [phone] [facility] [address] [place] [address] [address] [place] [facility] [address] [facility], [address], [facility] [address] [address] [facility] [address] [place], [place] [phone] [facility] [address] [place], [place] [phone] [facility] [id number] - [address]AMEL WILL[address], [facility] [address] [address] [place], [place] [address], [place] [phone] [place] [address] [place] [address] Additional Instructions: FOLLOW UP WITH YOUR PRIMARY CARE PHYSICIAN TOMORROW.Return to this facility if you are not improving as expected. JHON KIM PA-C Dec 05, 2018 13:26
== END 2018-12-05 11:53 | disposition home or self-care (01) ==
LOC: FTE 10:35
DX: R10.2 Pelvic and perineal pain (principal)
CPT/HCPCS: 81003; 81025; Z7502; 99283